=== PATIENT | male | born 1975 | race Caucasian/White ===

== ENCOUNTER 2022-06-20 16:21 | Emergency (ER) | payer BC ==
[2022-06-20 16:24] VITALS: O2SAT 95
[2022-06-20] MEDS ORDERED: KEFZOL 1 GM IM ONE (16:41)
[2022-06-20] MEDS ORDERED: Adacel Vial IM ONE ×2 (16:42→16:52)
[2022-06-20] MEDS ORDERED: Hydromorphone 1 mg/ml Injection IM ONE (16:42)
[2022-06-20] MEDS ORDERED: ZOFRAN ODT 4 MG PO ONE (16:43)
--- NOTE | 2022-06-20 16:50 | ERPHSYRPT ---
- History of Present Illness Source: patient Exam Limitations: no limitations Patient Subjective Stated Complaint: Pt cut right antierior of hand below the thumb on a piece of metal terrell Triage Nursing Assessment: Pt brought to the ER by his , vitals wnl, rates hand pain as 8/10, cut measures 4.75 cm x 1cm on his right anterior hand below his thumb, able to move his thumb, denies any other injuries Physician History: 46 yo wm w 4.75 laceration at base of R 1st digit. Pt is R handed and denies other injuries. He cut it putting a tin roof on his garage. Pt will be given Tdap in ER. Occurred: just prior to arrival Method of Injury: incised Quality: constant Severity of Pain-Max: severe Severity of Pain-Current: severe Extremities Pain Location: thumb: right Modifying Factors: Improves With: nothing, movement Associated Symptoms: none Allergies/Adverse Reactions: No Known Drug Allergies Allergy (Verified 06/20/22 16:30) Home Medications: No Reportable Medications [No Reported Medications] 06/20/22 [History] Hx Tetanus, Diphtheria Vaccination/Date Given: No Travel Risk - International Travel Have you traveled outside of the country in past 3 weeks: No - Coronavirus Screening Are you exhibiting any of the following symptoms?: No Close contact with a COVID-19 positive Pt in past 14-21 Days: No - Vaccine Status Have you recieved a Covid-19 vaccination: No - Review of Systems Constitutional: No Symptoms Eyes: No Symptoms Ears, Nose, & Throat: No Symptoms Respiratory: No Symptoms Cardiac: No Symptoms Abdominal/Gastrointestinal: No Symptoms Genitourinary Symptoms: No Symptoms Skin: No Symptoms Neurological: No Symptoms Psychological: No Symptoms Endocrine: No Symptoms Hematologic/Lymphatic: No Symptoms Immunological/Allergic: No Symptoms - Past Medical History Pertinent Past Medical History: No Musculoskeletal History: Fractures - Past Surgical History Past Surgical History: Yes Musculoskeletal: Orthopedic Surgery Other Surgical History: back and leg surgerys - Social History Smoking Status: Former smoker Exposure to second hand smoke: Yes Drug Use: none Patient Lives Alone: No Significant Family History: no pertinent family hx - Nursing Vital Signs Nursing Vital Signs: Initial Vital Signs Temperature 96.3 F 06/20/22 16:21 Pulse Rate 85 06/20/22 16:21 Blood Pressure 124/80 06/20/22 16:21 O2 Sat by Pulse Oximetry 95 06/20/22 16:21 Pain Scale Pain Intensity 8 WNL - Physical Exam General Appearance: no apparent distress (In pain) Eyes, Ears, Nose, Throat Exam: normal ENT inspection, TMs normal, pharynx normal, moist mucous membranes Neck Exam: normal inspection, non-tender, supple, full range of motion, No Brudzinski, No Kernig's, No meningismus Cardiovascular/Respiratory Exam: chest non-tender, normal breath sounds, regular rate/rhythm, heart sounds normal Abdominal Exam: non-tender, soft, no organomegaly Back Exam: normal inspection, normal range of motion, No CVA tenderness, No vertebral tenderness Shoulder Exam: normal inspection Elbow/Forearm Exam: normal inspection Wrist Exam: normal inspection Hand Exam: laceration (4.75cm laceration at base of R 1st digit/Abdustor tendon appears to be severed/Good distal capillary return and sensation/ROM appears intact) DTR - Upper Extremity Exam: bicep (R): 2+, bicep (L): 2+ Neuro/Tendon Exam: normal sensation, responds to pain, tendon injury visualized Mental Status Exam: alert, oriented x 3, cooperative, No agitated Skin Exam: normal color, warm, dry SpO2 Interpretation: normal SpO2: 95 O2 Delivery: Room Air - Course Nursing assessment & vital signs reviewed: Yes Ordered Tests: Medication Summary Discontinued Medications Generic Name Dose Route Start Last Admin Trade Name Thong PRN Reason Stop Dose Admin Cefazolin Sodium 2 g 06/20/22 16:41 06/20/22 16:55 Cefazolin Sodium 1 Gm Vial IM 06/20/22 16:42 2 g STAT ONE Administration Cefazolin Sodium Confirm 06/20/22 16:51 Cefazolin Sodium 1 Gm Vial Administered 06/20/22 16:52 Dose 2 g .ROUTE .STK-MED ONE Diphtheria/Tetanus/Acell Pertussis 0.5 ml 06/20/22 16:42 06/20/22 16:56 Tdap --Diph,Pertuss(Acell),Tet Vac/Pf 0.5 Ml Vial IM 06/20/22 16:43 0.5 ml .ONCE ONE Administration Diphtheria/Tetanus/Acell Pertussis Confirm 06/20/22 16:52 Tdap --Diph,Pertuss(Acell),Tet Vac/Pf 0.5 Ml Vial Administered 06/20/22 16:53 Dose 0.5 ml IM .STK-MED ONE Hydromorphone HCl 1 mg 06/20/22 16:42 06/20/22 16:55 Hydromorphone 1 Mg/1ml Inj 1 Mg/Ml Syringe IM 06/20/22 16:43 1 mg STAT ONE Administration Hydromorphone HCl Confirm 06/20/22 16:52 Hydromorphone 1 Mg/1ml Inj 1 Mg/Ml Syringe Administered 06/20/22 16:53 Dose 1 mg .ROUTE .STK-MED ONE Ondansetron HCl 4 mg 06/20/22 16:43 06/20/22 16:56 Zofran 4 Mg/Udtablet Orally Disintegrating PO 06/20/22 16:44 4 mg STAT ONE Administration Ondansetron HCl Confirm 06/20/22 16:52 Zofran 4 Mg/Udtablet Orally Disintegrating Administered 06/20/22 16:53 Dose 4 mg .ROUTE .STK-MED ONE Sterile Water Confirm 06/20/22 16:53 Water For Injection,Sterile 10 Ml Vial Administered 06/20/22 16:54 Dose 10 ml IJ .STK-MED ONE - Progress Progress Note: 06/20/22 17:[address] Bach, [facility] 2gms Ancef 1gm IM Dilaudid/4mg po zofran 06/20/22 17:16 Laceration dressed wet to dry per nursing 06/20/22 20:07 Counseled pt/family regarding: diagnosis, need for follow-up - Departure Departure Disposition: Transfer Clinical Impression: Hand laceration Condition: Stable Critical Care Time: No Referrals: JORJE FREED [Primary Care Provider] - Follow up/PCP as directed Additional Instructions: [facility] Nothing to eat/drink in route
[2022-06-20] MEDS ORDERED: KEFZOL 1 GM ONE (16:51)
[2022-06-20] MEDS ORDERED: ZOFRAN ODT 4 MG ONE (16:52)
[2022-06-20] MEDS ORDERED: Hydromorphone 1 mg/ml Injection ONE (16:52)
[2022-06-20] MEDS ORDERED: Sterile H2O 10 ml IJ ONE (16:53)
[2022-06-20 17:20] VITALS: BP 128/86; PULSE 88
== END 2022-06-20 17:25 | disposition short-term general hospital (02) ==
LOC: ED 16:21
DX: S61.411A Laceration without foreign body of right hand, initial encounter (principal); S66.821A Laceration of other specified muscles, fascia and tendons at wrist and hand level, right hand, initial encounter; W45.8XXA Other foreign body or object entering through skin, initial encounter; Y93.H3 Activity, building and construction; Y92.015 Private garage of single-family (private) house as the place of occurrence of the external cause; M79.641 Pain in right hand; Z28.310 Unvaccinated for COVID-19
CPT/HCPCS: 90471; 90715; 96372; 99284; J0690; J1170; Q0162

== ENCOUNTER 2024-12-25 09:35 | Day surgery (SDC) | payer BC ==
--- NOTE | 2024-12-25 09:00 | HP ---
HISTORY OF PRESENT ILLNESS: Patient's family history is mom had colon cancer. No prior disease, no change in bowel habits. No new pain. Family history of mother having colon cancer. Needing screening colonoscopy. PAST MEDICAL HISTORY: Denies any chronic illnesses. HOME MEDICATIONS: Graviola, antioxidant and multivitamin. ALLERGIES: No known drug allergies. PAST SURGICAL HISTORY: Had ankle surgery and back surgery. SOCIAL HISTORY: History of smoking. History of occasional alcohol use. FAMILY HISTORY: Colon cancer, heart disease. REVIEW OF SYSTEMS: Twelve systems reviewed. No chest pain or palpitations. Other systems negative or noncontributory as above and per preadmission questionnaire. PHYSICAL EXAMINATION: GENERAL: Height 6 feet 3 inches. BMI 26.87. No acute distress. HEENT: Sclerae nonicteric. NECK: No JVD. CHEST: Equal excursion, nonlabored breathing. CARDIOVASCULAR: Regular rate and rhythm. ABDOMEN: Soft. EXTREMITIES: No cyanosis or edema. NEUROLOGIC: Alert and oriented, moving all extremities symmetrically. PSYCHIATRIC: Appropriate mood and affect. RECTAL: Deferred. IMPRESSION: Family history of colon cancer. In need of screening colonoscopy given the family history of colon cancer. Risks explained in detail including bleeding, infection; risk of bowel injury or perforation; risks of missed or nondiagnosis, incomplete exam possibly requiring barium enema, other studies or procedure; risks of anesthesia or sedation; risk of bowel prep, but not limited to. Consent obtained. We will proceed with outpatient screening colonoscopy under MAC anesthesia.
[2024-12-25] MEDS: Lactated Ringers 1,000 ML IV SCH (10:14)
[2024-12-25] MEDS ORDERED: propofoL IV ONE ×3 (11:27→11:44)
[2024-12-25 11:54] VITALS: RESP 16; O2SAT 99
[2024-12-25 12:09] VITALS: BP 118/80; PULSE 56; TEMP 97
--- NOTE | 2024-12-26 18:10 | OP ---
SURGERY DATE/TIME: 12/25/2024 [id number] PREOPERATIVE DIAGNOSIS: Family history of colon cancer, need for screening colonoscopy. POSTOPERATIVE DIAGNOSES: 1) Polyps. 2) Pancolonic diverticulosis. 3) Fair prep. 4) ASA class 2. 5) Withdrawal time on colonoscopy approximately 10 minutes. PROCEDURES: 1) Colonoscopy to cecum, hot snare polypectomy transverse colon polyp. 2) Hot biopsy piecemeal polypectomy transverse colon polyps x2. 3) Hot biopsy polypectomy small polyp versus hyperplastic lesions in sigmoid colon x2. SURGEON: Costa Valdovinos MD. ANESTHESIA: MAC. ESTIMATED BLOOD LOSS: Minimal. INDICATIONS: Consent was obtained. DESCRIPTION OF PROCEDURE AND FINDINGS: Patient was taken to the operating room. MAC anesthesia induced. After official time-out and no disagreement with planned procedure. Digital rectal exam did not reveal any rectal masses. Videocolonoscope was inserted and passed up through slightly tortuous sigmoid, descending, transverse, ascending colon, around to the cecum. Appendiceal was not well visualized, photo documented. Actually, the scope was passed up the terminal ileum. Retrograde ileoscopy was performed which was grossly unremarkable. The scope was then carefully pulled back. There were 2 polyps that were removed with hot biopsy piecemeal polypectomy about 3 mm in size in the transverse colon, removed with hot biopsy in a piecemeal fashion and removed. The next polyp appeared to be semipedunculated and was removed with hot snare polypectomy, it was about 3.5 mm in size, removed with hot snare polypectomy. Good hemostasis noted. Patient did have small diverticula throughout the entire colon, mild diverticulosis. Scope pulled back to sigmoid colon and 2 small early polyps versus hyperplastic lesions removed with hot biopsy polypectomy. Good hemostasis noted. Scope was withdrawn. There were no signs of any large polyps, masses, or obstructing lesions. There was no family out there to discuss any findings with in the consultation room.
== END 2024-12-25 12:18 | disposition home or self-care (01) ==
LOC: SDC 09:35
PROVIDERS: ATTEND Surgery
DX: Z12.11 Encounter for screening for malignant neoplasm of colon (principal); Z80.0 Family history of malignant neoplasm of digestive organs; R19.4 Change in bowel habit; K57.30 Diverticulosis of large intestine without perforation or abscess without bleeding; D12.5 Benign neoplasm of sigmoid colon; D12.3 Benign neoplasm of transverse colon
CPT/HCPCS: J2704

== ENCOUNTER 2025-01-25 08:08 | Emergency (ER) | payer BC, OTHER ==
[2025-01-25 08:22] VITALS: RESP 18; TEMP 97.7
[2025-01-25 08:51] VITALS: O2SAT 97
--- NOTE | 2025-01-25 09:08 | XRAY ---
CLINICAL HISTORY: pain COMPARISON: None. TECHNIQUE: X-ray images of the left shoulder were obtained in anteroposterior (internal, external rotation) and Y-view projections. FINDINGS: Bone Structure: The bone structure is normal and aligned. No evidence of fracture or dislocation. The humeral head is properly positioned in the glenoid fossa. No osseous lesions or abnormalities were identified. Joint Spaces: Glenohumeral and acromioclavicular joint spaces are normal. Soft Tissues: No soft tissue swelling. No calcifications or foreign bodies were noted. Additional Findings: No signs of osteoarthritis, bone spurs, lytic or sclerotic lesions. IMPRESSION: No evidence of acute fracture, dislocation, or significant soft tissue abnormalities. Disclaimer: A subtle bone abnormality or fracture may not be readily apparent on X-rays, thus clinical correlation and further imaging including follow-up CT, MRI, or follow-up X-rays are advised as needed. Electronically Signed by: Otilia Zaragoza MD. (01/25/2025 09:04:48 EST)
--- NOTE | 2025-01-25 09:30 | ERPHSYRPT ---
- History of Present Illness Time Seen by Provider: 01/25/25 09:05 Source: patient Exam Limitations: no limitations Patient Subjective Stated Complaint: C/O left shoulder injury at work approx 30 minutes prior to arriving in the ER today. Patient works for the [employer] and was lifting/moving a 55 gallon drum when he heard and felt a pop. Triage Nursing Assessment: Patient ambulated back to ER. He is alert and oriented. S/S of pain present; diaphoretic and anxious. No SOB. Patient unable to lift left arm very high due to pain and had to have assistance removing his shirt for exam. Protrusion/deformity noted to left shoulder/clavicle area. Area tender to touch. Skin tone normal. Did not range LUE. Physician History: 49-year-old right-handed dominant healthy male presented in the ER with complaint of right shoulder pain sudden onset after he was pulling/moving a 55 gallon drum at work prior to arrival with sudden onset right shoulder pain with a popping sensation. Patient reports inability to raise above head and restricted range of motion with moderate to severe sharp shooting pain without numbness tingling or weakness distally. No chest pain palpitations or shortness of breath. No history of rotator cuff injury in the past. Allergies/Adverse Reactions: No Known Drug Allergies Allergy (Verified 01/25/25 08:12) Home Medications: Multivitamin 1 each PO UD 12/19/24 [History] Vit A/Vit C/Vit E/Selenium Yst [Antioxidant Formula Tablet] 1 tablet PO DAILY 12/25/24 [History] Hx Tetanus, Diphtheria Vaccination/Date Given: No Hx Influenza Vaccination/Date Given: No Travel Risk - International Travel Have you traveled outside of the country in past 3 weeks: No - Emerging Infectious Disease Are you exhibiting symptoms associated with any current EIDs: No - Review of Systems Constitutional: No Symptoms Ears, Nose, & Throat: No Symptoms Respiratory: No Symptoms Cardiac: No Symptoms Abdominal/Gastrointestinal: No Symptoms Musculoskeletal: Injury, Joint Pain Skin: No Symptoms Neurological: No Symptoms Endocrine: No Symptoms - Past Medical History Pertinent Past Medical History: Yes Neurological History: No Pertinent History ENT History: No Pertinent History Cardiac History: No Pertinent History Respiratory History: No Pertinent History Endocrine Medical History: No Pertinent History Musculoskeletal History: Fractures GI Medical History: No Pertinent History History: No Pertinent History Psycho-Social History: No Pertinent History Male Reproductive Disorders: No Pertinent History - Past Surgical History Past Surgical History: Yes Neuro Surgical History: No Pertinent History Cardiac: No Pertinent History Respiratory: No Pertinent History Gastrointestinal: No Pertinent History Genitourinary: No Pertinent History Musculoskeletal: Orthopedic Surgery Male Surgical History: No Pertinent History Other Surgical History: back and leg surgerys Significant Family History: no pertinent family hx - Social History Smoking Status: Current some day smoker Drug Use: none - Social Determinants of Health Will the patient participate in the screening: Yes Do you worry about a steady place to live?: No Do you have any problems with any of the following?: No known problems In the past 12 months,have you had to go without utilities?: No Transportation Issues: No Has anyone in your support network made you feel unsafe?: No Have you or anyone in your house had to go w/o enough food: No - Nursing Vital Signs Nursing Vital Signs: Initial Vital Signs Temperature 97.7 F 01/25/25 08:13 Pulse Rate 110 H 01/25/25 08:13 Respiratory Rate 18 01/25/25 08:13 Blood Pressure 212/110 01/25/25 08:13 O2 Sat by Pulse Oximetry 98 01/25/25 08:13 Pain Scale Pain Intensity 7 - Physical Exam General Appearance: no apparent distress Eyes, Ears, Nose, Throat Exam: normal ENT inspection Neck Exam: normal inspection, non-tender, supple, full range of motion Cardiovascular/Respiratory Exam: chest non-tender, normal breath sounds, regular rate/rhythm Shoulder Exam: normal inspection, limited ROM (Left shoulder limited extension, abduction, external rotation), pain, soft tissue tenderness Elbow/Forearm Exam: normal inspection, non-tender, no evidence of injury, normal ROM Wrist Exam: normal inspection, non-tender, no evidence of injury, normal ROM Neuro/Tendon Exam: normal sensation, normal motor functions Mental Status Exam: alert, oriented x 3, cooperative Skin Exam: normal color SpO2 Interpretation: normal SpO2: 97 O2 Delivery: Room Air Ordered Tests: Active Orders 24 hr Category Date Time Status SHOULDER Stat Exams 01/25/25 08:15 Completed - Progress Progress: pain not gone completely Progress Note: 01/25/25 09:28 49-year-old is evaluated in the ER for sudden onset left shoulder pain after he was pulling a heavy drum with popping sensation in the shoulder and marked restricted range of motion. Is given Toradol for symptomatic relief. Has intact distal neurovascular but marked limitation range of motion of left sh oulder. X-rays are negative for acute fracture dislocation reviewed by me followed by official read. I believe patient has rotator cuff injury, placed in a sling, recommended NSAIDs, ice application and outpatient orthopedics follow-up. Discussed signs symptoms of worsening needing return to ER which she seems understanding. Complexity of problems addressed moderate acute Amount/complexity of data analyzed: Moderate Risk of complications/morbidity of patient management: Moderate Counseled pt/family regarding: diagnosis, need for follow-up, rad results Medical Desision Making - Diagnostic Testing Diagnostic test were ordered, analyzed, and reviewed by me: Yes Radiological Interpretation: Reviewed by me, Teleradiologist Report - Risk of complications The pt has a mod risk of morbidity or mortality based on: Need for prescription drug management - Departure Departure Disposition: Home Clinical Impression: Sprain of shoulder, left Condition: Stable Critical Care Time: No Referrals: JORJE FREED [Primary Care Provider] - Follow up with PCP 1 day HAYLEE BENNETT MD [ACTIVE STAFF] - Follow up/PCP as directed ( appointment for reevaluation as recommended) Instructions: Shoulder Sprain (DC) Additional Instructions: Intermittent ice application, take Tylenol/ibuprofen as needed. Avoid exertional activities, follow-up with primary care/orthopedics for reevaluation. Return to ER for any worsening. Prescriptions: Ibuprofen 600 mg PO Q6HPRN PRN 10 Days #20 tablet PRN Reason: Pain
[2025-01-25] MEDS ORDERED: TORAdol 30 mg Injection ONE (09:42)
[2025-01-25 09:43] VITALS: BP 133/113; PULSE 86
[2025-01-25] MEDS: TORAdol 30 mg Injection IM ONE (09:44)
== END 2025-01-25 10:01 | disposition home or self-care (01) ==
LOC: ED 08:08
DX: S43.402A Unspecified sprain of left shoulder joint, initial encounter (principal); X50.0XXA Overexertion from strenuous movement or load, initial encounter; Y99.0 Civilian activity done for income or pay; Z79.899 Other long term (current) drug therapy; Z72.0 Tobacco use
CPT/HCPCS: 73030; 96372; 99283; J1885